=== PATIENT | male | born 1960 | race Caucasian/White ===

== ENCOUNTER → 2020-09-19 13:23 | Outpatient (BNVA) | payer MEDICARE, MEDICAID, SELFPAY | PROVIDERS: Visit Provider Urology | DX: N40.1 Benign prostatic hyperplasia with lower urinary tract symptoms (principal); N13.8 Other obstructive and reflux uropathy | CPT/HCPCS: Q3014 ==

== ENCOUNTER → 2021-10-24 11:19 | Outpatient (BNVA) | payer MEDICARE, MEDICAID, SELFPAY | PROVIDERS: PCP Nurse Practitioner Family; Visit Provider Urology | DX: Z13.89 Encounter for screening for other disorder (principal) ==

== ENCOUNTER → 2021-10-29 10:37 | Outpatient (BNVA) | payer MEDICARE, MEDICAID, SELFPAY | PROVIDERS: PCP Nurse Practitioner Family; Visit Provider Urology | DX: N40.1 Benign prostatic hyperplasia with lower urinary tract symptoms (principal); N13.8 Other obstructive and reflux uropathy; R35.1 Nocturia; R33.9 Retention of urine, unspecified | CPT/HCPCS: Q3014 ==

== ENCOUNTER → 2022-05-30 12:56 | Outpatient (BNVA) | payer MEDICARE, MEDICAID, SELFPAY | PROVIDERS: PCP Nurse Practitioner Family; Visit Provider Urology | DX: N40.1 Benign prostatic hyperplasia with lower urinary tract symptoms (principal); R35.1 Nocturia; R33.9 Retention of urine, unspecified; N13.8 Other obstructive and reflux uropathy | CPT/HCPCS: 99212; Q3014 ==

== ENCOUNTER 2023-06-23 08:29 | Outpatient (AMB) | payer MEDICARE, MEDICAID, SELFPAY ==
--- NOTE | 2023-06-23 08:20 | A.OFFVIS_ITS ---
Intake Intake Visit Reasons: follow up/PSA(psa) Intake Note: Patient is present via phone for a follow-up on PSA Current Medication: Doxazosin Blood Thinner: Yes Apixaban (Eliquis) PSA Results: 1.6 ng/ Free PSA 0.4 ng/mL 06/15/2023 Material Handler Loader Required: No Accompanied by: Self / Same As Patient Allergies acetaminophen [Tylenol] Allergy (Unknown, Verified 05/29/22 16:26) nausea Medication List - Last Reconciled 06/23/23 by Tyrel Calvo MD albuterol sulfate 90 mcg/actuation 2 puffs PO QID PRN albuterol sulfate mg inhalation Q8H PRN apixaban 2.5 mg PO BID apixaban (Eliquis) 2.5 mg PO BID budesonide-formoterol 160-4.5 mcg/actuation 2 puffs PO BID cetirizine 10 mg PO DAILY clindamycin HCl 300 mg PO Q12H clopidogrel 75 mg PO DAILY doxazosin 4 mg PO BEDTIME 30 days doxazosin 2 mg PO BEDTIME 30 days gabapentin mg PO varicella-zoster [id number]-AS01B (PF) 50 mcg/0.5 mL IM HPI HPI Comments History of Present Illness Details Juno Gee is a very pleasant male. He is a patient of Dr. Wallis. He is seen in the office today for following urologic conditions. - lower urinary tract symptoms Telemedicine evaluation 15 minute consultation [employer] kesha Video attempted Working more frequently at night - now up to 3-4 times Remains on doxazosin 6 mg PSA low Original procedure in 2017 Plan office cystoscopy Lower Urinary Tract Symptoms: [facility] 11/21 Doing well with emptying Nocturia 2-3 Good emptying Strong stream Current treatment includes observation. Prior treatments include medication, alpha blockers, flomax/tamsulosin - [facility] 11/22. Prostate Symptom Score Mild (0-8), Bother 2. Symptoms include incomplete emptying, weak stream, nocturia (>2), , and are stable. Results from testing include cystoscopy high riding bladder neck (median bar) 04/23 Prior Prostate Score mild. PSA 07/25 1.8, 09/27 2.0, 10/29 2.3, 05/30 1.6 Prostate volume 30-50gm. Associated conditions CAD No CVA No diabetes No elevated PSA No erectile dysfunction No hematuria No renal insufficiency No urge incontinence No urinary retention No urinary tract infection No psychiatric diagnosis No Testing at next visit will include bladder scan [facility] Medical History Arthritis Asthma BPH (benign prostatic hyperplasia) Chronic obstructive pulmonary disease (COPD) Enlarged prostate Incomplete emptying of bladder Nocturia Surgical History History of surgery Review of Systems Const All systems reviewed & are unremarkable except as noted in HPI and below Reports no additional complaints Resp Reports no additional complaints GI Reports no additional complaints Reports as per HPI Musc Reports no additional complaints Physical Exam Telemedicine evaluation Appropriate responses Regular breathing rate and rhythm HEENT Head: Yes normal to inspection Ears: hearing grossly normal bilaterally Eyes General: appearance normal, both eyes and all related structures Neck Neck: Yes normal visual inspection Chest Chest palpation & inspection: normal inspection of the chest Resp Effort & Inspection: normal respiratory effort and able to speak in complete sentences Assessment & Plan Assessment & Plan (1) Incomplete emptying of bladder: Code(s): R33.9 - Retention of urine, unspecified (2) Nocturia: Code(s): R35.1 - Nocturia (3) BPH w urinary obs/LUTS: Code(s): N40.1 - Benign prostatic hyperplasia with lower urinary tract symptoms; N13.8 - Other obstructive and reflux uropathy Plan Progressive symptoms Plan office cystoscopy Patient Instructions: Imaging studies, laboratory and physical exam results were discussed and reviewed in detail. No major barriers to patient understanding were identified. An opportunity to ask questions regarding the treatment plan was provided. All questions were answered. The patient expressed understanding and agreement with the above treatment plan. The patient is aware they should contact our office by phone for worsening of their current condition or the appearance of new urologic symptoms. Compliance is encouraged with any medications and followup testing that is ordered. It is a privilege to participate in the urologic care of your patient. If you h ave any questions or concerns regarding treatment for the above conditions, or other urologic issues, please do not hesitate to contact me. The office telephone contact is [phone]. This note is constructed using voice recognition software. While every effort has been made to ensure accuracy operations project manager errors may have been included. Yours sincerely, Dr Tyrel Calvo MD, [facility] - Urology Providers of Expert, Compassionate Care for the Genitourinary System Telehealth Telehealth Location of provider rendering services: practice address Location of patient: address on file Patient Identification confirmed using: Name, : Yes Telehealth method: video Patient verbally consented to treatment: Yes Patient verbally consented to billing insurance company: Yes Patient informed of any privacy concerns related to visit: Yes Coding Level of Care Code Tele Est Pt Level 3 (34807) Diagnoses Incomplete emptying of bladder R33.9 Nocturia R35.1 BPH w urinary obs/LUTS N40.1; N13.8
== END 2023-06-23 10:04 | disposition home or self-care (01) ==
LOC: HO.HUSH 08:29
PROVIDERS: PCP Nurse Practitioner Family; Visit Provider Urology
DX: N40.1 Benign prostatic hyperplasia with lower urinary tract symptoms (principal); R33.9 Retention of urine, unspecified; R35.1 Nocturia; N13.8 Other obstructive and reflux uropathy
CPT/HCPCS: 99213

== ENCOUNTER → 2023-06-23 08:29 | Outpatient (BNVA) | payer MEDICARE, MEDICAID, SELFPAY | PROVIDERS: PCP Nurse Practitioner Family; Visit Provider Urology ==

== ENCOUNTER 2023-07-28 12:52 | Outpatient (AMB) | payer MEDICARE, MEDICAID, SELFPAY ==
--- NOTE | 2023-07-28 12:58 | A.OFFVIS_ITS ---
Intake Intake Visit Reasons: cysto Intake Note: Patient is Present for Cystoscopy Urology Med: Doxazosin Antibiotic Allergy: None Blood Thinner: Eliquis, PVR:0 URO- G Disposable Cystoscope lot: [id number] exp:02/18/25 Allergies acetaminophen [Tylenol] Allergy (Unknown, Verified 07/28/23 12:59) nausea HPI HPI Comments History of Present Illness Details Juno Gee is a very pleasant male. He is a patient of Dr. Wallis. He is seen in the office today for following urologic conditions. - lower urinary tract symptoms Cystoscopy with grade 1/2 trabeculation and possible overactive bladder Open bladder neck prior procedure Trial oxybutynin 2 month follow-up Increased nocturia Remains on doxazosin 6 mg PSA low Original procedure in Lower Urinary Tract Symptoms: [facility] 11/21 Cystoscopy with trabeculation open bladder neck Current treatment includes observation. Prior treatments include medication, alpha blockers, flomax/tamsulosin - [facility] 11/22. Prostate Symptom Score Mild (0-8), Bother 2. Symptoms include incomplete emptying, weak stream, nocturia (>2), , and are stable. Results from testing include cystoscopy high riding bladder neck (median bar) 04/23 Prior Prostate Score mild. PSA 07/25 1.8, 09/27 2.0, 10/29 2.3, 05/30 1.6 Prostate volume 30-50gm. Testing at next visit will include bladder scan [facility] Medical History Arthritis Enlarged prostate Chronic obstructive pulmonary disease (COPD) Asthma Nocturia Incomplete emptying of bladder BPH (benign prostatic hyperplasia) Surgical History History of surgery Review of Systems Const Denies chills and Denies fever(s) Card Reports no additional complaints and Denies syncope Resp Denies cough GI Denies abdominal pain and Denies heartburn Reports as per HPI and Denies change in libido Neuro Denies syncope Psych Denies change in libido Endo Denies change in libido Physical Exam Const General: cooperative, healthy appearing, comfortable and no acute distress Orientation/consciousness: patient oriented x3 HEENT Face and sinus: Yes normal facial exam Mouth: moist mucous membranes Neck Neck: Yes normal visual inspection, Yes full ROM and Yes trachea midline Chest Chest palpation & inspection: normal inspection of the chest Resp Effort & Inspection: normal respiratory effort, able to speak in complete sentences and no respiratory distress GI Inspection: Yes normal to inspection Back/Spine/Pelvis Cervical Spine: normal cervical lordosis Thoracic/Lumbar Spine: thoracic and lumbar spine normal to inspection Skin General skin exam: no rashes or lesions noted Neuro General: patient oriented x3, gait normal, tone normal and moves all extremities Extrem General: Yes normal to inspection and Yes capillary refill normal Office Procedures Cystoscopy Consent Discussed risk and benefit or proposed procedure with the patient. Information consent for procedure given to the patient. Discussed technical aspects, risks, benefits and alternatives in full. Addressed all of the patient's questions and concerns regarding the procedure. The patient demonstrated knowledge and understanding. They wish to proceed with this procedure. Preparation The patient was prepped in the usual manner. A template cutter was present and in the room. Genitalia was prepped with betadine solution in a sterile manner. Lidocaine Jelly 2% was placed into the urethra and 16Fr flexible Olympus cystoscope was inserted into the meatus after adequate lubrication. Procedure Meatus circumcised Urethra anterior posterior urethra normal Prostatic Urethra TURP defect Bladder examination with retroflexion of cystoscope Bladder Orifices normal shape and position Bladder Capacity medium Trabeculations grade 1/2 - collagen deposition with mild injection Cellule Formation - Diverticulum Formation - Mucosal Erythema - Bladder Tumor - [id number] DISPOSABLE SCOPE URO-G FLEXIBLE SCOPE Procedure code (CPT) selection complete Office Meds lidocaine HCl 2 % mucosal jelly in applicator Performing Provider: Tyrel Calvo MD Performing Location: [facility] [place] [facility] Administered by: Cassi Moore RN on 07/28/23 13:24 Dose Route Admin Location Dispensed Lot Number Expiration Date [facility] Speeder Operator 10 mL intra-urethral 10 mL nitrofurantoin monohydrate/macrocrystals 100 mg capsule Performing Provider: Tyrel Calvo MD Performing Location: [facility] [place] [facility] Administered by: Cassi Moore RN on 07/28/23 13:24 Dose Route Admin Location Dispensed Lot Number Expiration Date [facility] Speeder Operator 100 mg PO 1 cap naproxen 500 mg tablet Performing Provider: Tyrel Calvo MD Performing Location: [facility] [place] [facility] Administered by: Cassi Moore RN on 07/28/23 13:24 Dose Route Admin Location Dispensed Lot Number Expiration Date [facility] Speeder Operator 500 mg PO 1 tab Results AMB Urinalysis, Automated UA Leukoctes 0 Juliana/uL Last Edit by Julee Kilpatrick [facility] on 07/28/23 13:06 UA Nitrite Negative Last Edit by Julee Kilpatrick A on 07/28/23 13:06 UA Urobilinogen 0.2 mg/dL Last Edit by Julee Kilpatrick A on 07/28/23 13:0 6 UA Protein 15 mg/dL Last Edit by Julee Kilpatrick A on 07/28/23 13:06 UA pH 5.0 Last Edit by Julee Kilpatrick A on 07/28/23 13:06 UA Blood 25 Virgil/uL Last Edit by Julee Kilpatrick A on 07/28/23 13:06 UA Specific Hoffman 1.030 Last Edit by Julee Kilpatrick A on 07/28/23 13: 06 UA Ketone Positive Last Edit by Julee Kilpatrick [facility] on 07/28/23 13:06 UA Bilirubin 0 mg/dL Last Edit by Julee Kilpatrick A on 07/28/23 13:06 UA Glucose 0 mg/dL Last Edit by Julee Kilpatrick [facility] on 07/28/23 13:06 Results Reviewed Results Reviewed: Laboratory Last Values Urine pH (Auto) 5.0 07/28/23 13:00 Specific Hoffman (Auto) 1.030 07/28/23 13:00 Urine Protein (Auto) 15 mg/dL 07/28/23 13:00 Glucose (UA)(Auto) 0 mg/dL 07/28/23 13:00 Urine Ketones (Auto) Positive 07/28/23 13:00 Urine Blood (Auto) 25 Virgil/uL 07/28/23 13:00 Urine Nitrite (Auto) Negative 07/28/23 13:00 Urine Bilirubin (Auto) 0 mg/dL 07/28/23 13:00 Urine Urobilinogen (Auto) 0.2 mg/dL 07/28/23 13:00 Leukocyte Esterase (Auto) 0 Juliana/uL 07/28/23 13:00 Assessment & Plan Assessment & Plan (1) Overactive bladder: Code(s): N32.81 - Overactive bladder Plan Trial oxybutynin Orders: Orders AMB Cystoscopy Today N13.8 - Other obstructive and reflux uropathy, N40.1 - Benign prostatic hyperplasia with lower urinary tract symptoms AMB Urinalysis Automated Today Z13.9 - Encounter for screening, unspecified Medications: New oxybutynin chloride ER 10 mg PO DAILY 30 days 30 tabs 1RF N32.81 - Overactive bladder Patient Instructions: Imaging studies, laboratory and physical exam results were discussed and reviewed in detail. No major barriers to patient understanding were identified. An opportunity to ask questions regarding the treatment plan was provided. All questions were answered. The patient expressed understanding and agreement with the above treatment plan. The patient is aware they should contact our office by phone for worsening of their current condition or the appearance of new urologic symptoms. Compliance is encouraged with any medications and followup testing that is ordered. It is a privilege to participate in the urologic care of your patient. If you have any questions or concerns regarding treatment for the above conditions, or other urologic issues, please do not hesitate to contact me. The office telephone contact is [phone]. This note is constructed using voice recognition software. While every effort has been made to ensure accuracy trucking manager errors may have been included. Yours sincerely, Dr Tyrel Calvo MD, [facility] - Urology Providers of Expert, Compassionate Care for the Genitourinary System Coding Level of Care Code Est Pt Level 4 (27397) Diagnoses Overactive bladder N32.81 CPT Codes Cystoscopy - CPT: 39327-[id number] ([id number])
== END 2023-07-28 13:48 | disposition home or self-care (01) ==
PROVIDERS: PCP Nurse Practitioner Family; Visit Provider Urology
DX: N32.81 Overactive bladder (principal); R35.1 Nocturia; Z13.9 Encounter for screening, unspecified
CPT/HCPCS: 52000; 99214

== ENCOUNTER → 2023-07-28 12:52 | Outpatient (BNVA) | payer MEDICARE, MEDICAID, SELFPAY | PROVIDERS: PCP Nurse Practitioner Family; Visit Provider Urology | DX: N32.81 Overactive bladder (principal) | CPT/HCPCS: 52000; 81003; 99212 ==

== ENCOUNTER 2023-09-30 11:42 | Outpatient (AMB) | payer MEDICARE, MEDICAID, SELFPAY ==
--- NOTE | 2023-09-30 11:43 | A.OFFVIS_ITS ---
Intake Intake Visit Reasons: 2M Med Review(Oxybutynin) Intake Note: Patient is Present for Telephone Follow Up Med Review Urology Med: Doxazosin, Oxybutynin Antibiotic Allergy: None Blood Thinner: Eliquis Allergies acetaminophen [Tylenol] Allergy (Unknown, Verified 07/28/23 12:59) nausea Medication List - Last Reconciled 09/30/23 by Tyrel Calvo MD albuterol sulfate 90 mcg/actuation 2 puffs PO QID PRN albuterol sulfate mg inhalation Q8H PRN apixaban 2.5 mg PO BID apixaban (Eliquis) 2.5 mg PO BID budesonide-formoterol 160-4.5 mcg/actuation 2 puffs PO BID cetirizine 10 mg PO DAILY doxazosin 4 mg PO BEDTIME 90 days doxazosin 2 mg PO BEDTIME 90 days fesoterodine ER 4 mg PO DAILY 90 days gabapentin mg PO oxybutynin chloride ER 10 mg PO DAILY 30 days varicella-zoster [id number]-AS01B (PF) 50 mcg/0.5 mL IM HPI HPI Comments History of Present Illness Details Juno Gee is a very pleasant male. He is a patient of Dr. Wallis. He is seen in the office today for following urologic conditions. - lower urinary tract symptoms - overactive bladder Telemedicine Evaluation 15 min Consultation [employer] [place] Video attempted 06/29 Cystoscopy with grade 1/2 trabecul ation and possible overactive bladder Good response to 2 month trial oxybutynin Had dry mouth that required biotin Will switch to Toviaz which has less reported side effects Six-month follow-up Original procedure in 2016 Lower Urinary Tract Symptoms: [facility] 11/21 Cystoscopy with trabeculation open bladder neck Current treatment includes observation. Prior treatments include medication, alpha blockers, flomax/tamsulosin - [facility] 11/22 Prostate Symptom Score Mild (0-8), Bother 2. Symptoms include incomplete emptying, weak stream, nocturia (>2), , and are stable. Results from testing include cystoscopy high riding bladder neck (median bar) 04/23 Prior Prostate Score mild. PSA 07/25 1.8, 09/27 2.0, 10/29 2.3, 05/30 1.6 Prostate volume 30-50gm. Testing at next visit will include bladder scan [facility] Medical History Arthritis Enlarged prostate Chronic obstructive pulmonary disease (COPD) Asthma Nocturia Incomplete emptying of bladder BPH (benign prostatic hyperplasia) Surgical History History of surgery Review of Systems Const All systems reviewed & are unremarkable except as noted in HPI and below Reports no additional complaints Resp Reports no additional complaints GI Reports no additional complaints Reports as per HPI Musc Reports no additional complaints Physical Exam Telemedicine evaluation Appropriate responses Regular breathing rate and rhythm HEENT Head: Yes normal to inspection Ears: hearing grossly normal bilaterally Eyes General: appearance normal, both eyes and all related structures Neck Neck: Yes normal visual inspection Chest Chest palpation & inspection: normal inspection of the chest Resp Effort & Inspection: normal respiratory effort and able to speak in complete sentences Assessment & Plan Assessment & Plan (1) Overactive bladder: Code(s): N32.81 - Overactive bladder (2) Nocturia: Code(s): R35.1 - Nocturia (3) BPH w urinary obs/LUTS: Code(s): N40.1 - Benign prostatic hyperplasia with lower urinary tract symptoms; N13.8 - Other obstructive and reflux uropathy Plan Start Toaz Six-month follow-up tele Medications: New fesoterodine ER take daily for bladder urge 4 mg PO DAILY 90 days 90 tabs 1RF N32.81 - Overactive bladder Patient Instructions: Imaging studies, laboratory and physical exam results were discussed and reviewed in detail. No major barriers to patient understanding were identified. An opportunity to ask questions regarding the treatment plan was provided. All questions were answered. The patient expressed understanding and agreement with the above treatment plan. The patient is aware they should contact our office by phone for worsening of their current condition or the appearance of new urologic symptoms. Compliance is encouraged with any medications and followup testing that is ordered. It is a privilege to participate in the urologic care of your patient. If you have any questions or concerns regarding treatment for the above conditions, or other urologic issues, please do not hesitate to contact me. The office telephone contact is [phone]. This note is constructed using voice recognition software. While every effort has been made to ensure accuracy acute care physical therapist errors may have been included. Yours sincerely, Dr Tyrel Calvo MD, [facility] - Urology Providers of Expert, Compassionate Care for the Genitourinary System Telehealth Telehealth Location of provider rendering services: practice address Location of patient: address on file Patient Identification confirmed using: Name, : Yes Telehealth method: video Patient verbally consented to treatment: Yes Patient verbally consented to billing insurance company: Yes Patient informed of any privacy concerns related to visit: Yes Coding Level of Care Code Tele Est Pt Level 4 (03142) Diagnoses Overactive bladder N32.81 Nocturia R35.1 BPH w urinary obs/LUTS N40.1; N13.8
== END 2023-09-30 12:16 | disposition home or self-care (01) ==
LOC: HO.HUSH 11:42
PROVIDERS: PCP Nurse Practitioner Family; Visit Provider Urology
DX: N32.81 Overactive bladder (principal); N40.1 Benign prostatic hyperplasia with lower urinary tract symptoms; R35.1 Nocturia; N13.8 Other obstructive and reflux uropathy
CPT/HCPCS: 99214

== ENCOUNTER → 2023-09-30 11:42 | Outpatient (BNVA) | payer MEDICARE, MEDICAID, SELFPAY | PROVIDERS: PCP Nurse Practitioner Family; Visit Provider Urology ==

== ENCOUNTER 2024-04-01 09:55 | Outpatient (AMB) | payer MEDICARE, MEDICAID, SELFPAY ==
--- NOTE | 2024-04-01 09:50 | MHC.OFFVIS ---
Intake Visit Reasons: 6m follow up Intake Note: Patient is present for 6M F/U Urology Medication:DOXAZOSIN, FESOTERODINE Antibiotic Allergy:NONE Blood Thinner:ELIQUIS Pin Machine Operator Required: No Allergies acetaminophen [Tylenol] Allergy (Unknown, Verified 04/01/24 09:52) nausea HPI Comments Details: Juno Gee is a very pleasant male. He is a patient of Dr. Wallis. He is seen in the office today for following urologic conditions. - lower urinary tract symptoms - overactive bladder Telemedicine Evaluation 15 min Consultation [employer] [place] Video attempted Overactive bladder follow-up Has been on doxazosin 6mg Did not tolerate oxybutynin and required Biotene for dry mouth 06/29 Cystoscopy with grade 1/2 trabeculation and possible overactive bladder Original procedure in 2016 Previously on Toviaz which he stopped Lower Urinary Tract Symptoms: [facility] 11/21 Cystoscopy with trabeculation open bladder neck Current treatment includes observation. Prior treatments include medication, alpha blockers, flomax/tamsulosin - [facility] 11/22 Prostate Symptom Score Mild (0-8), Bother 2. Symptoms include incomplete emptying, weak stream, nocturia (>2), , and are stable. Results from testing include cystoscopy high riding bladder neck (median bar) 04/23 Prior Prostate Score mild. PSA 07/25 1.8, 09/27 2.0, 10/29 2.3, 05/30 1.6 Prostate volume 30-50gm. Testing at next visit will include bladder scan [facility] Medical History Arthritis Enlarged prostate Chronic obstructive pulmonary disease (COPD) Asthma Nocturia Incomplete emptying of bladder BPH (benign prostatic hyperplasia) Surgical History History of surgery Review of Systems Const All systems reviewed & are unremarkable except as noted in HPI and below Reports no additional complaints Resp Reports no additional complaints GI Reports no additional complaints Reports as per HPI Musc Reports no additional complaints Physical Exam Telemedicine evaluation Appropriate responses Regular breathing rate and rhythm HEENT Head: Yes normal to inspection Ears: hearing grossly normal bilaterally Eyes General: appearance normal, both eyes and all related structures Neck Neck: Yes normal visual inspection Chest Chest palpation & inspection: normal inspection of the chest Resp Effort & Inspection: normal respiratory effort and able to speak in complete sentences Telehealth Telehealth Telehealth Platform: [employer] Location of provider rendering services: practice address Location of patient: address on file Patient Identification confirmed using: Name, : Yes Telehealth method: video Patient verbally consented to treatment: Yes Patient verbally consented to billing insurance company: Yes Patient informed of any privacy concerns related to visit: Yes Minutes spent on Phone/Video with Pt.: 15 Assessment & Plan Assessment & Plan (1) Overactive bladder: Code(s): N32.81 - Overactive bladder Category: Medical (2) BPH w urinary obs/LUTS: Code(s): N40.1 - Benign prostatic hyperplasia with lower urinary tract symptoms; N13.8 - Other obstructive and reflux uropathy Category: Medical Plan Six month follow-up Medications: Refilled doxazosin 2 mg PO BEDTIME 90 days 90 tabs 1RF doxazosin 4 mg PO BEDTIME 90 days 90 tabs 1RF Discontinued fesoterodine ER take daily for bladder urge Discontinued Reason: Doctor's Order 4 mg PO DAILY 90 days 90 tabs 1RF N32.81 - Overactive bladder Patient Instructions: Imaging studies, laboratory and physical exam results were discussed and reviewed in detail. No major barriers to patient understanding were identified. An opportunity to ask questions regarding the treatment plan was provided. All questions were answered. The patient expressed understanding and agreement with the above treatment plan. The patient is aware they should contact our office by phone for worsening of their current condition or the appearance of new urologic symptoms. Compliance is encouraged with any medications and followup testing that is ordered. It is a privilege to participate in the urologic care of your patient. If you have any questions or concerns regarding treatment for the above conditions, or other urologic issues, please do not hesitate to contact me. The office telephone contact is [phone]. This note is constructed using voice recognition software. While every effort has been made to ensure accuracy human resources professional errors may have been included. Yours sincerely, Dr Tyrel Calvo MD, [facility] - Urology Providers of Expert, Compassionate Care for the Genitourinary System Coding Level of Care Code Tele Est Pt Level 3 (09038) Diagnoses Overactive bladder N32.81 BPH w urinary obs/LUTS N40.1; N13.8
== END 2024-04-01 10:35 | disposition home or self-care (01) ==
LOC: HO.HUSH 09:55
PROVIDERS: PCP Nurse Practitioner Family; Visit Provider Urology
DX: N32.81 Overactive bladder (principal); N40.1 Benign prostatic hyperplasia with lower urinary tract symptoms; N13.8 Other obstructive and reflux uropathy
CPT/HCPCS: 99213

== ENCOUNTER → 2024-04-01 09:55 | Outpatient (BNVA) | payer MEDICARE, MEDICAID, SELFPAY | PROVIDERS: PCP Nurse Practitioner Family; Visit Provider Urology ==

== ENCOUNTER 2025-01-11 14:45 | Outpatient (AMB) | payer MEDICARE, MEDICAID, SELFPAY ==
--- NOTE | 2025-01-11 14:46 | A.OFFVIS_ITS ---
Intake Visit Reasons: 6M follow up- call [phone] for tele Intake Note: Patient is present for 6M F/U Urology Medication:DOXAZOSIN Antibiotic Allergy:NONE Blood Thinner:APIXABAN Recruitment Internship Required: No Allergies acetaminophen [Tylenol] Allergy (Unknown, Verified 01/11/25 14:49) nausea HPI Comments Details: Juno Gee is a very pleasant male. He is a patient of Dr. Wallis. He is seen in the office today for following urologic conditions. - lower urinary tract symptoms - overactive bladder Telemedicine Evaluation - [phone] 15 min Consultation Tutors[employer] [place] Video 6m f/u Overactive bladder follow-up Current therapy includes doxazosin 6mg 06/29 Cystoscopy with grade 1/2 trabeculation and possible overactive bladder Original procedure in 2016 Previously on oxybutynin and required Biotene for dry mouth, Toviaz which he stopped Lower Urinary Tract Symptoms: [facility] 11/21 Cystoscopy with trabeculation open bladder neck Current treatment includes observation. Prior treatments include medication, alpha blockers, flomax/tamsulosin - [facility] 11/22 Prostate Symptom Score Mild (0-8), Bother 2. Symptoms include incomplete emptying, weak stream, nocturia (>2), , and are stable. Results from testing include cystoscopy high riding bladder neck (median bar) 04/23 Prior Prostate Score mild. PSA 07/25 1.8, 09/27 2.0, 10/29 2.3, 05/30 1.6 Prostate volume 30-50gm. Testing at next visit will include bladder scan [facility] Medical History Arthritis Enlarged prostate Chronic obstructive pulmonary disease (COPD) Asthma Nocturia Incomplete emptying of bladder BPH (benign prostatic hyperplasia) Surgical History History of surgery Review of Systems Const All systems reviewed & are unremarkable except as noted in HPI and below Reports no additional complaints Resp Reports no additional complaints GI Reports no additional complaints Reports as per HPI Musc Reports no additional complaints Physical Exam Telemedicine evaluation Appropriate responses Regular breathing rate and rhythm HEENT Head: Yes normal to inspection Ears: hearing grossly normal bilaterally Eyes General: appearance normal, both eyes and all related structures Neck Neck: Yes normal visual inspection Chest Chest palpation & inspection: normal inspection of the chest Resp Effort & Inspection: normal respiratory effort and able to speak in complete sentences Telehealth Telehealth Telehealth Platform: [employer] Location of provider rendering services: practice address Location of patient: address on file Patient Identification confirmed using: Name, : Yes Telehealth method: video Patient verbally consented to treatment: Yes Patient verbally consented to billing insurance company: Yes Patient informed of any privacy concerns related to visit: Yes Minutes spent on Phone/Video with Pt.: 15 Assessment & Plan Assessment & Plan (1) BPH w urinary obs/LUTS: Code(s): N40.1 - Benign prostatic hyperplasia with lower urinary tract symptoms; N13.8 - Other obstructive and reflux uropathy Category: Medical (2) Nocturia: Code(s): R35.1 - Nocturia Category: Medical (3) Overactive bladder: Code(s): N32.81 - Overactive bladder Category: Medical Plan continue with doxazosin Six-month follow-up Medications: Refilled doxazosin 2 mg PO BEDTIME 90 days 90 tabs 1RF doxazosin 4 mg PO BEDTIME 90 days 90 tabs 1RF Patient Instructions: This note is constructed using voice recognition software. While every effort has been made to ensure accuracy lollypop machine operator errors may have been included. Imaging studies, laboratory and physical exam results were discussed and reviewed in detail. No major barriers to patient understanding were identified. An opportunity to ask questions regarding the treatment plan was provided. All questions were answered. The patient expressed understanding and agreement with the above treatment plan. The patient is aware they should contact our office by phone for worsening of their current condition or the appearance of new urologic symptoms. Compliance is encouraged with any medications and followup testing that is ordered. It is a privilege to participate in the urologic care of your patient. If you have any questions or concerns regarding treatment for the above conditions, or other urologic issues, please do not hesitate to contact me. The office telephone contact is [phone]. Sincerely, Dr Tyrel Calvo MD, [facility] - Urology Compassionate Specialist Care for the Genitourinary System Coding Level of Care Code Tele Est Pt Level 3 (14619) Diagnoses BPH w urinary obs/LUTS N40.1; N13.8 Nocturia R35.1 Overactive bladder N32.81
--- OUTSIDE RECORDS SUMMARY | 2025-01-11 15:50 | XMS_ITS | Clinical Summary ---
Author Organization [facility] Address [address] [facility] [email or web address] [address] Care Team Providers Care Clay Maker Name Role Phone Myles Marino PHARMACEUTICAL BOTANIST Primary Ca re Provider Immunizations Name Administration Dates Next Due Flucelvax Trivalent PFS IM; Without Preservative (18+ mos) 05/12/2020 Social History Tobacco Use Types Packs/Day Years Used Date Smoking Tobacco: Never Assessed Sex and Gender Information Value Date Recorded Sex Assigned at Not on file Legal Sex Male 11:43 AM EDT Gender Identity Not on file Sexual Orientation Not on file Plan of Treatment Health Maintenance Due Date Last Done Comments Colorectal Cancer: COLONOSCO PY Screening every 10 yrs (or Modifier) 1959 Depression: Screening Annual ly using PHQ-2/9 in Adults 18 yrs or above (or HM Modifier)([facility]) 1959 Hepatitis C Virus Infection in Adolescents and Adults: Screening (or Modifier) ([facility]) 1977 SDNC Screening Reminder: Cynthia xiang for all adults ([facility]) 1977 Tobacco Smoking Cessation: i n Adults excluding Women: Behavioral and Pharmacotherapy Interventions ([facility]) 1977 DTaP/Tdap/Td Vaccines ([facility]) (1 - Tdap) 1978 Lipid Screening: Every 5 yrs for Men aged 35+ (or HM Modifier) ([facility]) 1995 Colorectal Cancer Screening 45 -75 Yrs (or HM Modifier) 2004 Colorectal Cancer: FLEXIBLE SIGMOIDOSCOPY Screening every 5 yrs 2004 Colorectal Cancer: Fecal Imm unochemical Test (FIT) Annually [facility] 2004 Colorectal Cancer: High-sens itivity gFOBT Screening Annually [facility] 2004 Colorectal Cancer: Stool Col oguard Screening every 3 yrs 2004 Colorectal Cancer:CT Colonog nato Screening every 5 yrs 2004 Pneumococcal Vaccination Scr eening: Patients 50+ yrs of age ([facility]) (1 of 1 - PCV) 2009 Zoster/Shingles Vaccine Seri es Screening: Adults aged 18+ yrs (or HM Modifiers)([facility]) (1 of 2) 2009 COVID-19 Vaccine Screening: Initial Series and Booster Status ([facility]) (2023- season) 2024 Flu Vaccination: Ages 65+: Y early High Dose Recommended (or Modifier)([facility]) 04/07/2025 05/12/2020 RSV Vaccines (1 - 1-dose 75+ series) 2034 [employer] Devices Not on file Insurance MEDICARE Care Teams Clay Maker Relationship Specialty Start Date End Date Myles Marino NP [address] [place] [address] [facility] [address] [place] [address] PCP - General Family Medicine 05/12/20
--- OUTSIDE RECORDS SUMMARY | 2025-01-11 15:50 | XMS_ITS | Clinical Summary ---
Author Organization [facility], Address [address] [place] [address] Phone Care Team Providers Care Die Repairer Forging Name Role Phone Myles Wallis FLOOR TILING PROFESSIONAL Primary Care Provider [phone] Allergies No known active allergies Medications apixaban (ELIQUIS) 2.5 MG tablet Take 1 tablet by mouth 2 Active clopidogrel (PLAVIX) 75 MG tablet Take 75 mg by mouth 2 Active doxazosin (CARDURA) 4 MG tablet Take 4 mg by mouth 2 Active gabapentin (NEURONTIN) 100 MG capsule Take 100 mg by mouth if needed 2 Active budesonide-form oterol (SYMBICORT) 160-4.5 MCG/ACT inhaler Inhale 2 Active albuterol HFA (PROVENTIL HFA;VENTOLIN HFA) 108 (90 Base) MCG/ACT inhaler Inhale 2 Active famotidine (PEPCID) 20 MG tablet Take 20 mg by mouth in the morning and 20 mg in the evening. Active dexamethasone (DECADRON) 2 MG tablet Take 2 mg by mouth 1 (one) time each day with breakfast Active acetaminophen-c odeine (TYLENOL #3) 300-30 MG per tablet Take 1 tablet by mouth every 4 (four) hours if needed for moderate pain for up to 10 doses May fill to a lesser amount. 10 tablet 2 Active Active Problems Problem Noted Date Diagnosed Date Adenocarcinoma of lung 05/15/2022 Personal history of kidney stones 05/15/2022 Benign prostatic hyperplasia 05/01/2022 Asthma 05/01/2022 Arm claudication 05/01/2022 Chronic constipation 05/01/2022 Congenital heart disease 05/01/2022 Emphysema 05/01/2022 Ex-smoker 05/01/2022 Gastroesophageal reflux disease 05/01/2022 Incomplete right bundle branch block 05/01/2022 Osteoarthritis 05/01/2022 Peripheral arterial occlusive disease 05/01/2022 Seasonal allergic rhinitis 05/01/2022 Testicular mass 05/01/2022 Underweight 05/01/2022 Cachexia 11/05/2012 Social History Tobacco Use Types Packs/Day Years Used Date Smoking Tobacco: Former Cigarettes Q uit: 1999 Smokeless Tobacco: Never Tobacco Cessation:Counseling Given: Not Answered Comments:Quit smoking in 1999 Alcohol Use Standard Drinks/Week Comments Never 0 (1 standard drink = 0.6 oz pur e alcohol) Sex and Gender Information Value Date Recorded Sex Assigned at Not on file Legal Sex Male 8:38 AM EDT Gender Identity Not on file Sexual Orientation Not on file Last Filed Vital Signs Vital Sign Reading Time Taken Comments Blood Pressure 147/65 05/15/2022 11:58 AM EDT Pulse 79 05/15/2022 11:58 AM EDT Temperature 36.8 ??C (98.3 ??F) 05/15/2022 11:58 AM E DT Respiratory Rate 16 05/15/2022 11:58 AM EDT Oxygen Saturation 94% 05/15/2022 11:58 AM EDT Inhaled Oxygen Concentration - - Weight 41.3 kg (91 lb) 05/15/2022 11:58 AM EDT Height 154.9 cm (5' 1 ) 05/15/2022 11:58 AM EDT Body Mass Index 17.19 05/15/2022 11:58 AM EDT Plan of Treatment Health Maintenance Due Date Last Done Comments Colorectal Cancer Screening: Annual FOBT 2008 Colorectal Cancer Screening: Colonoscopy 2008 Colorectal Cancer Screening: Sigmoidoscopy 2008 Pneumococcal Vaccine: 50+ Ye ars (2 of 2 - PPSV23) 09/09/2018 07/15/2018 Influenza Vaccine (Season Ended) 2025 05/12/20 20 Pneumococcal Vaccine: Peds ( 0 to 5 Years) and At-Risk Patients (6 to 49 Years) Discontinued 07/15/2018 Hepatitis B Vaccine Aged Out No longe r eligible based on patient's age to complete this topic Insurance Medicare Medicaid [place] Care Teams Die Repairer Forging Relationship Specialty Start Date End Date Myles Wallis NP [address] [place], [place] PCP - General Nurse Practitioner 05/01/22
== END 2025-01-11 15:17 | disposition home or self-care (01) ==
LOC: HO.HUSH 14:45
PROVIDERS: PCP Nurse Practitioner Family; Visit Provider Urology
DX: N40.1 Benign prostatic hyperplasia with lower urinary tract symptoms (principal); N13.8 Other obstructive and reflux uropathy; R35.1 Nocturia; N32.81 Overactive bladder
CPT/HCPCS: 99213

== ENCOUNTER → 2025-01-11 14:45 | Outpatient (BNVA) | payer MEDICARE, MEDICAID, SELFPAY | PROVIDERS: PCP Nurse Practitioner Family; Visit Provider Urology ==